=== PATIENT | female | born 1980 | race Caucasian/White ===

== ENCOUNTER 2016-10-13 11:04 | Emergency (ER) | payer BC ==
[2016-10-13 11:14] VITALS: BP 118/66
--- NOTE | 2016-10-13 11:21 | EDM.PDOC ---
ED HPI - General Chief Complaint: Abdominal Pain Stated Complaint: 5 WEEKS PREG AND CRAMPING Time Seen by Provider: 10/13/16 11:15 Source of Information: Reports: Patient History Limitations: Reports: No limitations - History of Present Illness INITIAL COMMENTS - FREE TEXT/NARRATIVE: 36-year-old female presents to the ED with diffuse lower pelvic cramping pain. No vaginal bleeding. Of note she is around 5 weeks this is been confirmed both by urine and quantitative beta-hCGs . Patient suffered a miscarriage a month ago and then got right away. Beginning of last menstrual period was around September 07.. Lasted 4 days as per normal. She miscarried at approximately 5 weeks gestation as well. Is 2 para zero For the ECGs have been doubling every couple of days as anticipated. She is no longer nauseated though she states for the last 2 days nausea is gone away breasts are not quite as tender either. She has been taking some progesterone cream vaginally. All function has not been as good as normal she is a little bit on the constipated side. Last labs revealed a doubling of the beta hCG to 143 on Tuesday. Symptom Onset Date: 10/13/16 (Lower bowel cramping pain without vaginal bleeding ) Timing/Duration: Reports: Hour(s): Location, : Reports: abdomen, other (I. 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 (see below) - Related Data Allergies/ADRs: Allergies Allergy/AdvReac Type Severity Reaction Status Date / Time No Known Allergies Allergy Verified 10/13/16 11:14 Home Meds: Home Meds Progesterone,Micronized [Crinone] 1 applic TOP DAILY 10/13/16 [History] Past Medical History - Past Health History Medical/Surgical History: Denies Medical/Surgical History HEENT History: Reports: Impaired vision Cardiovascular History: Reports: None Respiratory History: Reports: None Gastrointestinal History: Reports: None Genitourinary History: Reports: None 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: None, (Currently 5 weeks gestation) : 2 (First spontaneous miscarriage at 5 weeks gestation.) Para: 0 Musculoskeletal History: Reports: Fracture Other Musculoskeletal History: fx of toe Neurological History: Reports: None Psychiatric History: Reports: None Endocrine/Metabolic History: Reports: None Hematologic History: Reports: None Immunologic History: Reports: None Oncologic (Cancer) History: Reports: None Dermatologic History: Reports: None - Infectious Disease History Infectious Disease History: Reports: None - Past Surgical History Head Surgeries/Procedures: Reports: None Social & Family History - Family History Family Medical History: Noncontributory - Tobacco Use Smoking Status *Q: Former Smoker Years of Tobacco use: 6 Second Hand Smoke Exposure: No - Caffeine Use Caffeine Use: Reports: Coffee - Recreational Drug Use Recreational Drug Use: No - Living Situation & Occupation Living situation: Reports: Occupation: employed ED [employer] GENER[employer] - Review of Systems Review Of Systems: See Below Constitutional: Reports: fatigue. Denies: fever, chills, malaise, weakness HEENT: Reports: No symptoms Respiratory: Reports: No Symptoms Cardiovascular: Reports: No symptoms Endocrine: Reports: no symptoms GI/Abdominal: Reports: Abdominal pain (See history of present illness) : Reports: frequency Musculoskeletal: Reports: no symptoms Skin: Reports: no symptoms Neurological: Reports: No Symptoms Psychiatric: Reports: No symptoms Hematologic/Lymphatic: Reports: no symptoms Immunologic: Reports: no symptoms ED EXAM - Physical Exam Exam: See Below Exam Limited By: Other General Appearance: WD/WN, anxious, mild distress Respiratory/Chest: no respiratory distress, lungs clear, normal breath sounds, no accessory muscle use Cardiovascular: normal peripheral pulses, regular rate, rhythm, no edema, no gallop, no murmur GI/Abdominal: soft, non tender, no organomegaly, abnormal bowel sounds: ( Slightly hyperactive bowel sounds throughout.), other (Palpable left hemicolon.) . No: no mass, distended, gravid uterus Back Exam: normal inspection, full range of motion. No: CVA tenderness (L), CVA tenderness (R) Extremities: normal inspection, normal range of motion, non-tender, no pedal edema, normal capillary refill Neurological: alert, oriented, CN II-XII intact, normal cognition, normal gait Psychiatric: normal affect, normal mood Skin Exam: Warm, Intact, Normal color, No rash Course - Vital Signs Last Recorded V/S: Last Vital Signs Temp 37.1 C 10/13/16 11:09 Pulse 73 10/13/16 11:09 Resp 16 10/13/16 11:09 BP 118/66 10/13/16 11:09 Pulse Ox 100 10/13/16 11:09 - Orders/Labs/Meds Labs: Laboratory Tests 10/13/16 10/13/16 Range/Units 11:38 11:44 HCG, Quant 1515.0 mIU/mL Urine Color Yellow (Yellow) Urine Appearance Clear (Clear) Urine pH 6.0 (5.0-8.0) Ur Specific [place] 1.025 (1.005-1.030) Urine Protein Negative (Negative) Urine Glucose (UA) Negative (Negative) Urine Ketones Negative (Negative) Urine Occult Blood Negative (Negative) Urine Nitrite Negative (Negative) Urine Bilirubin Negative (Negative) Urine Urobilinogen 0.2 (0.2-1.0) Ur Leukocyte Esterase Negative (Negative) Urine RBC Not seen (0-5) /hpf Urine WBC 0-5 (0-5) /hpf Ur Epithelial Cells 0-5 (0-5) /hpf Urine Bacteria Few (FEW) /hpf Urine Mucus Not seen (FEW) /hpf Meds: Medications Discontinued Medications Generic Name Dose Route Start Last Admin Trade Name Freq PRN Reason Stop Dose Admin Magnesium Citrate 180 ml 10/13/16 12:44 10/13/16 12:52 Citrate Of Magnesia PO 10/13/16 12:45 180 ml ONETIME ONE Administration - Radiology Interpretation Free Text/Narrative:: 36-year-old female presents the ED with diffuse lower abdominal cramping pain particularly left lower quadrant suprapubically area. Note she is 5 weeks . She lost the last a month ago at around 5 weeks gestation. At this time she is no vaginal bleeding. Pain started this morning. She recognizes that her bowels have not been working as well as normal. Examination reveals very active bowel sounds throughout the abdomen and palpable left hemicolon. Plan I will repeat her quantitative beta-hCG levels to make sure that is doing as expected. - Re-Assessments/Exams Free Text/Narrative Re-Assessment/Exam: 10/13/16 12:35: Quantitative beta hCG came back at 1515. Which means that it is doubling as one would anticipate. Patient reassured. Advised taking some Citroma when she gets back to [place] erect suggested 6 ounces by mouth which should provide her with 3 or 4 bowel movements today and relieve her abdominal cramping pain. Constipation problems continue she may insert using MiraLax powder 17 g every other day to ensure regular bowel movements. Departure - Departure Time of Disposition: 12:45 Disposition: Home, Self-Care 01 Condition: fair Clinical Impression: Constipation by delayed colonic transit, First trimester Abdominal pain Qualifiers: Abdominal location: left lower quadrant Qualified Code(s): R10.32 - Left lower quadrant pain Instructions: First Trimester of , [id number], Constipation, Adult, Abdominal Pain, Adult, [id number] Referrals: PCP,Not In Area [Primary Care Provider] - Forms: ED Department Discharge Additional Instructions: Evaluation in the emergency room today in regards to diffuse abdominal cramping pain. Concern appreciated about whether it's related to uterine contractions in early since her last was lost at about the same gestation. I 'm happy to report that the quantitative beta-hCG today is 1515 which means the is thriving well at this time. Examination of the abdomen revealed increased bowel sounds and palpable left colon compatible with left hemicolon constipation. I suggest would be to take 5-6 ounces of Citroma by mouth next with 5 ounces of juice when you get back to [facility]. Usually takes about an hour to work and will often make her bowels move 3-4 times. He should relieve your abdominal cramping pain. Constipation issues continue to the then suggest MiraLax powder 17 g one scoop daily to prevent constipation.
[2016-10-13] MEDS ORDERED: Magnesium Citrate Solution 296 ML Bottle PO ONE (12:44)
== END 2016-10-13 12:50 | disposition home or self-care (01) ==
LOC: JD.ED 11:04
DX: O99.89 Other specified diseases and conditions complicating pregnancy, childbirth and the puerperium (principal); K59.01 Slow transit constipation; Z3A.01 Less than 8 weeks gestation of pregnancy; Z87.891 Personal history of nicotine dependence
CPT/HCPCS: 36415; 81001; 84702; 99284; A9270; 99283